=== PATIENT | female | born 1975 | race Caucasian/White ===

== ENCOUNTER → 2018-04-19 | Outpatient (CLI) | payer OTHER ==
[~2018-04-19] MED LIST: AZIT-1 PO; BENZ200C15 PO; CEP500 PO; GUAI120L3 PO; LOR5/325 PO
== END ==
LOC: LAB 08:21
PROVIDERS: ATTEND Emergency Medicine
DX: D75.89 Other specified diseases of blood and blood-forming organs (principal)
CPT/HCPCS: 36415; 82607; 83090; 83921